=== PATIENT | male | born 1970 | race Caucasian/White ===

== ENCOUNTER 2016-09-05 18:43 | Emergency (ER) | payer SELFPAY ==
[~2016-09-05] VITALS: Ht 177.8 cm; Wt 118.5 kg
[~2016-09-05 18:43] MED LIST: BACTDS PO; CEPH-443 PO; IBUP-1542 PO
[2016-09-05 18:59] VITALS: Ht 177.8 cm; Wt 118.5 kg
[2016-09-05] MEDS ORDERED: LIDOCAINE 1% (MDV) 20 ML INJ SC ONE (20:30)
[2016-09-05] MEDS ORDERED: IBUP800T25 PO (21:30)
[2016-09-05] MEDS ORDERED: BACTDS PO (21:30)
[2016-09-05] MEDS ORDERED: CEPH-443 PO (21:30)
[2016-09-05 21:44] VITALS: PULSE 78; RESP 20; TEMP 98.4
--- NOTE | 2016-09-05 22:09 | ERD ---
ER Documentation Chief Complaint Date/Time DATE: 09/05/16 TIME: 22:03 Chief Complaint abscess back area HPI 46-year-old male with a past medical history of pilonidal cysts presents the ED complaining of a recurrent pilonidal abscess presents to the ED complaining of the same pilonidal cyst that keeps getting infected. States that this recurrence occurred 1.5 weeks ago. Describes the pain as throbbing and rates it a 9 out of 10. States that the pain is worse when he sits and stands.. States that he has not followed up with a general surgeon. Denies any abdominal pain, saddle anesthesia, chest pain, shortness of breath, weakness, melena, hematemesis, fever, chills. ROS All systems reviewed and are negative except as per history of present illness. Medications Home Meds Active Scripts Ibuprofen* (Motrin*) 800 Mg Tab, 800 MG PO Q6, #30 TAB take with food Prov:SMITH MILES. PA-C 09/05/16 Cephalexin* (Keflex*) 500 Mg Capsule, 500 MG PO QID for 7 Days, CAP Prov:SMITH MILES. PA-C 09/05/16 Sulfamethoxazole-Trimethoprim* (Bactrim* DS) 800-160 Mg Tab, 1 TAB PO BID for 7 Days, TAB Prov:SMITH MILES. PA-C 09/05/16 Ibuprofen* (Motrin*) 600 Mg Tab, 600 MG PO Q6, #30 TAB Prov:SMITH MILES. PA-C 01/07/16 Cephalexin* (Keflex*) 500 Mg Capsule, 500 MG PO QID for 7 Days, CAP Prov:SMITH MILES. PA-C 01/07/16 Sulfamethoxazole-Trimethoprim* (Bactrim* DS) 800-160 Mg Tab, 1 TAB PO BID for 7 Days, TAB Prov:SMITH MILES T. PA-C 01/07/16 Allergies Allergies: Coded Allergies: No Known Allergy (Unverified , 09/05/16) PMhx/Soc History of Surgery: No Anesthesia Reaction: No Hx Neurological Disorder: No Hx Respiratory Disorders: No Hx Cardiac Disorders: No Hx Psychiatric Problems: No Hx Miscellaneous Medical Probl: No Hx Alcohol Use: Yes Hx Substance Use: No Hx Tobacco Use: Yes Smoking Status: Unknown if ever smoked Physical Exam Vitals Vital Signs Date Time Temp Pulse Resp B/P Pulse Ox O2 Delivery O2 Flow Rate FiO2 09/05/16 21:44 98.4 78 20 99 Room Air 09/05/16 18:59 99.8 107 20 131/79 100 Physical Exam Const: [id number], well-nourished. In no acute distress. Head: Atraumatic, normocephalic Eyes: Normal Conjunctiva without injection. No purulent discharge. ENT: Normal external ear, nose. Moist oropharynx without tonsillar exudates. Non -erythematous pharynx. Uvula midline. No drooling. No trismus. Neck: No cervical midline tenderness. Full range of motion. No meningismus. No cervical lymphadenopathy. No JVD. Resp: Clear to auscultation bilaterally. No wheezing, rhonchi, rales, or crackles. No accessory muscle use. No retractions. Cardio: Regular rate and rhythm. No murmurs, rubs or gallops. Abd: Soft, nontender, non distended. Normal bowel sounds. No palpable masses. No rebound tenderness. No guarding. Negative McBurney's point. Negative psoas sign. Negative obturator sign. 6 cm erythematous indurated abscess with central fluctuance noted on the right upper needle cleft. No hemorrhoids, tenderness to palpation of the rectum. No lymphatic streaking. Skin: No petechiae or rashes Back: No midline tenderness. No CVA tenderness. Ext: No cyanosis, or edema. Neur: Awake and alert. Normal gait. Normal coordination. Psych: Normal Mood and Affect Results 24 hrs Current Medications Medications (Trade) Dose Ordered Sig/Katiana Route PRN Reason Start Time Stop Time Status Last Admin Dose Admin Lidocaine (Xylocaine 1% (Mdv) 20 ml) 20 ml ONCE ONCE SC 09/05/16 20:30 09/05/16 20:32 DC Procedures/MDM 46-year-old male with a past medical history pilonidal cyst presents the ED complaining of a recurrent pilonidal cyst that is infected that started 1 and half weeks ago. Patient is afebrile and nontoxic-appearing. Patient has normal vital signs. Patient denied wanting any pain medication at this time. Patient gave consent to perform incision and drainage. 11 blade scalpel used to make a small incision. Abscess Incision and Drainage with irrigation by me: Location: Right gluteal cleft Anesthesia: [8 cc Local 1% Lidocaine] Technique: [Irrigated. Disrupted loculations w/ instrumentation ] Packing: [20 cm] Complications: [Neurovascularly intact post procedure] Copious purulent discharge drained from the abscess. 48 hour wound check recommended. Scar minimization instructions given. Low suspicion for hemorrhoids, anal fistula, perirectal abscess, folliculitis, acute abdomen, cauda equina, epidural abscess, fracture, dislocation, discitis, or other emergent conditions. Keflex and Bactrim was prescribed to patient. Instructed patient to return to the ED sooner for any worsening symptoms. Follow up with primary care physician or return to the ED in 2 days for a wound check. Patient's questions were answered. Patient understood and agreed with discharge plan. Departure Diagnosis: Primary Impression: Pilonidal cyst with abscess Condition: Stable Patient Instructions: Pilonidal Cyst, Infected (Incision And Drainage) Referrals: [facility] YOU HAVE RECEIVED A MEDICAL SCREENING EXAM AND THE RESULTS INDICATE THAT YOU DO NOT HAVE A CONDITION THAT REQUIRES URGENT TREATMENT IN THE EMERGENCY DEPARTMENT. FURTHER EVALUATION AND TREATMENT OF YOUR CONDITION CAN WAIT UNTIL YOU ARE SEEN IN YOUR DOCTORS OFFICE WITHIN THE NEXT 1-2 DAYS. IT IS YOUR RESPONSIBILITY TO MAKE AN APPOINTMENT FOR FOLOW-UP CARE. IF YOU HAVE A PRIMARY DOCTOR --you should call your primary doctor and schedule an appointment IF YOU DO NOT HAVE A PRIMARY DOCTOR YOU CAN CALL OUR PHYSICIAN REFERRAL HOTLINE AT IF YOU CAN NOT AFFORD TO SEE A PHYSICIAN YOU CAN CHOSE FROM THE FOLLOWING [facility] [address] [facility] [address] [facility]. [facility] [address] [facility] [address] [facility] [address] [facility]. [facility]. [address] [facility]. [facility] YOU HAVE RECEIVED A MEDICAL SCREENING EXAM AND THE RESULTS INDICATE THAT YOU DO NOT HAVE A CONDITION THAT REQUIRES URGENT TREATMENT IN THE EMERGENCY DEPARTMENT. FURTHER EVALUATION AND TREATMENT OF YOUR CONDITION CAN WAIT UNTIL YOU ARE SEEN IN YOUR DOCTORS OFFICE WITHIN THE NEXT 1-2 DAYS. IT IS YOUR RESPONSIBILITY TO MAKE AN APPOINTMENT FOR FOLOW-UP CARE. IF YOU HAVE A PRIMARY DOCTOR --you should call your primary doctor and schedule and appointment IF YOU DO NOT HAVE A PRIMARY DOCTOR YOU CAN CALL OUR PHYSICIAN REFERRAL HOTLINE AT . IF YOU CAN NOT AFFORD TO SEE A PHYSICIAN YOU CAN CHOSE FROM THE FOLLOWING [facility] INSTITUTIONS: [facility] [address] [place] [address] [facility] [address] [place] [address] [facility] [address] [place] [address] [facility] URGENT CARE/SPECIALTIES Additional Instructions: Return to the ED or see your family doctor in 2 days for a wound check and packing removal. Return to this facility if you are not improving as expected. SMITH MILES PA-C Sep 05, 2016 22:09
== END 2016-09-05 21:35 | disposition home or self-care (01) ==
LOC: FTE 18:43
DX: L05.01 Pilonidal cyst with abscess (principal); Z87.891 Personal history of nicotine dependence

== ENCOUNTER 2016-10-08 22:52 | Emergency (ER) | payer SELFPAY ==
[~2016-10-08] VITALS: Ht 177.8 cm; Wt 113.9 kg
[~2016-10-08 22:52] MED LIST changes: +IBUP800T25 PO
[2016-10-08 22:54] VITALS: Ht 177.8 cm; Wt 113.9 kg
[2016-10-09] MEDS ORDERED: LIDOCAINE 1% (MDV) 20 ML INJ SC ONE
[2016-10-09] MEDS ORDERED: HYDR-906 PO (02:23)
[2016-10-09] MEDS ORDERED: IBUP-1542 PO (02:23)
[2016-10-09] MEDS ORDERED: BACTDS PO (02:24)
[2016-10-09] MEDS ORDERED: CEPH-443 PO (02:24)
--- NOTE | 2016-10-09 02:30 | ERD ---
ER Documentation Chief Complaint Date/Time DATE: 10/09/16 TIME: 02:25 Chief Complaint abscess at lower back HPI This is a 46-year-old male with a past medical history of recurrent pilonidal abscesses presents to the ED complaining of a bump on the right side of his lower back. States that he thinks that it is due to a recurrent pilonidal abscess. States that he has not followed with his family physician for a referral to a general surgeon. Denies any abdominal pain, nausea, vomiting, abdominal pain, nausea, vomiting, diarrhea, melena, bloody stools, fever. Denies any dysuria, urgency, frequency, girdle pain. ROS All systems reviewed and are negative except as per history of present illness. Medications Home Meds Active Scripts Cephalexin* (Keflex*) 500 Mg Capsule, 500 MG PO QID for 7 Days, CAP Prov:MILESSMITH Ivey PA-C 10/09/16 Sulfamethoxazole-Trimethoprim* (Bactrim* DS) 800-160 Mg Tab, 1 TAB PO BID for 7 Days, TAB Prov:MILESSMITH Hui. PA-C 10/09/16 Ibuprofen* (Motrin*) 600 Mg Tab, 600 MG PO Q6, #30 TAB Prov:JDSMITH Ivey PA-C 10/09/16 Hydrocodone/Acetaminophen (Damon 5-325 Tablet) 1 Each Tablet, 1 TAB PO Q6H Y for PAIN, #7 TAB Prov:SMITH MILES Loni PA-C 10/09/16 Ibuprofen* (Motrin*) 800 Mg Tab, 800 MG PO Q6, #30 TAB take with food Prov:LUPIS MILESANA MARIA Ivey PA-C 09/05/16 Cephalexin* (Keflex*) 500 Mg Capsule, 500 MG PO QID for 7 Days, CAP Prov:JDSMITH Ivey PA-C 09/05/16 Sulfamethoxazole-Trimethoprim* (Bactrim* DS) 800-160 Mg Tab, 1 TAB PO BID for 7 Days, TAB Prov:JDSMITH Hui. PA-C 09/05/16 Ibuprofen* (Motrin*) 600 Mg Tab, 600 MG PO Q6, #30 TAB Prov:SMITH MILES PA-C 01/07/16 Cephalexin* (Keflex*) 500 Mg Capsule, 500 MG PO QID for 7 Days, CAP Prov:SMITH MILES Loni GUTIERREZ 01/07/16 Sulfamethoxazole-Trimethoprim* (Bactrim* DS) 800-160 Mg Tab, 1 TAB PO BID for 7 Days, TAB Prov:SMITH MILESRohan GUTIERREZ 01/07/16 Allergies Allergies: Coded Allergies: No Known Allergy (Unverified , 09/05/16) PMhx/Soc Medical and Surgical Hx: pt denies Surgical Hx History of Surgery: Yes (ABSCESS DRAINAGE MULT TIMES; LAST 2 WEEKS AGO) Anesthesia Reaction: No Hx Neurological Disorder: No Hx Respiratory Disorders: No Hx Cardiac Disorders: No Hx Psychiatric Problems: No Hx Miscellaneous Medical Probl: No Hx Alcohol Use: Yes (2-3 BEERS/ DAY) Hx Substance Use: No Hx Tobacco Use: Yes (10 CIGS/ DAY) Smoking Status: Current every day smoker Physical Exam Vitals Vital Signs Date Time Temp Pulse Resp B/P Pulse Ox O2 Delivery O2 Flow Rate FiO2 10/08/16 22:54 97.5 88 20 121/81 100 Physical Exam Const: [id number], well-nourished. In no acute distress. Head: Atraumatic, normocephalic Eyes: Normal Conjunctiva without injection. No purulent discharge. ENT: Normal external ear, nose. Moist oropharynx without tonsillar exudates. Non -erythematous pharynx. Uvula midline. No drooling. No trismus. Neck: No cervical midline tenderness. Full range of motion. No meningismus. No cervical lymphadenopathy. No JVD. Resp: Clear to auscultation bilaterally. No wheezing, rhonchi, rales, or crackles. No accessory muscle use. No retractions. Cardio: Regular rate and rhythm. No murmurs, rubs or gallops. Abd: Soft, nontender, non distended. Normal bowel sounds. No palpable masses. No rebound tenderness. No guarding. Negative McBurney's point. Negative psoas sign. Negative obturator sign. 5 cm fluctuant abscess noted on the right side of the gluteal cleft with surrounding induration with 1 cm previous incision scars from previous incision and drainages. No bleeding noted. No purulent discharge noted. Skin: No petechiae or rashes Back: No midline tenderness. No CVA tenderness. Ext: No cyanosis, or edema. Neur: Awake and alert. Normal gait. Normal coordination. Psych: Normal Mood and Affect Results 24 hrs Current Medications Medications (Trade) Dose Ordered Sig/Katiana Route PRN Reason Start Time Stop Time Status Last Admin Dose Admin Lidocaine (Xylocaine 1% (Mdv) 20 ml) 20 ml ONCE ONCE SC 10/09/16 00:00 10/09/16 00:01 DC Procedures/MDM This is a 46-year-old male with a past medical history of pilonidal abscesses presents the ED complaining of a recurrent pilonidal abscess. Patient is afebrile and nontoxic-appearing. Patient has normal vital signs. Patient gave consent to perform incision and drainage. 11 blade scalpel used to make a small incision. Abscess Incision and Drainage with irrigation by me: Location: [Right side of gluteal cleft] Anesthesia: [4 cc Local 1% Lidocaine] Technique: [Irrigated. Disrupted loculations w/ instrumentation ] Packing: [30 cm] Complications: [Neurovascularly intact post procedure] Copious purulent discharge drained from the abscess. 48 hour wound check recommended. Scar minimization instructions given. Low suspicion for anal fissure, anal fistula, perirectal abscess, hemorrhoids, GI bleeding, acute abdomen, appendicitis, sepsis, or other emergent conditions. Keflex and Bactrim was prescribed to patient. Instructed patient to return to the ED sooner for any worsening symptoms. Follow up with primary care physician or return to the ED in 2 days for a wound check. Patient was instructed strictly to follow-up with her primary care physician for a referral to general surgeon. Patient's questions were answered. Patient understood and agreed with discharge plan. Departure Diagnosis: Primary Impression: Pilonidal cyst with abscess Condition: Stable Patient Instructions: Pilonidal Cyst, Infected (Incision And Drainage) Referrals: [facility] YOU HAVE RECEIVED A MEDICAL SCREENING EXAM AND THE RESULTS INDICATE THAT YOU DO NOT HAVE A CONDITION THAT REQUIRES URGENT TREATMENT IN THE EMERGENCY DEPARTMENT. FURTHER EVALUATION AND TREATMENT OF YOUR CONDITION CAN WAIT UNTIL YOU ARE SEEN IN YOUR DOCTORS OFFICE WITHIN THE NEXT 1-2 DAYS. IT IS YOUR RESPONSIBILITY TO MAKE AN APPOINTMENT FOR FOLOW-UP CARE. IF YOU HAVE A PRIMARY DOCTOR --you should call your primary doctor and schedule an appointment IF YOU DO NOT HAVE A PRIMARY DOCTOR YOU CAN CALL OUR PHYSICIAN REFERRAL HOTLINE AT IF YOU CAN NOT AFFORD TO SEE A PHYSICIAN YOU CAN CHOSE FROM THE FOLLOWING [facility] CL[facility]ICS [facility] [address] [facility] [address] [facility] [address] [facility] [address] [facility] [address] [facility]. [facility]. [address] [facility]. [facility] YOU HAVE RECEIVED A MEDICAL SCREENING EXAM AND THE RESULTS INDICATE THAT YOU DO NOT HAVE A CONDITION THAT REQUIRES URGENT TREATMENT IN THE EMERGENCY DEPARTMENT. FURTHER EVALUATION AND TREATMENT OF YOUR CONDITION CAN WAIT UNTIL YOU ARE SEEN IN YOUR DOCTORS OFFICE WITHIN THE NEXT 1-2 DAYS. IT IS YOUR RESPONSIBILITY TO MAKE AN APPOINTMENT FOR FOLOW-UP CARE. IF YOU HAVE A PRIMARY DOCTOR --you should call your primary doctor and schedule and appointment IF YOU DO NOT HAVE A PRIMARY DOCTOR YOU CAN CALL OUR PHYSICIAN REFERRAL HOTLINE AT . IF YOU CAN NOT AFFORD TO SEE A PHYSICIAN YOU CAN CHOSE FROM THE FO[facility] IN[facility]IONS: [facility] [address] [place] [address] [facility] [address] [place] [address] [facility] [address] [place] [address] [facility] URGENT CARE/SPECIALTIES Additional Instructions: FOLLOW UP WITH YOUR PRIMARY CARE PHYSICIAN or HERE IN THE ED for a WOUND CHECK IN 2 DAYS. Follow-up with your primary care physician for a referral to general surgeon. Return to this facility if you are not improving as expected such as increased redness, fever, chills, swelling. SMITH MILES PA-C Oct 09, 2016 02:30
== END 2016-10-09 03:24 | disposition left against medical advice (07) ==
LOC: FTE 22:52
DX: L05.01 Pilonidal cyst with abscess (principal); F17.210 Nicotine dependence, cigarettes, uncomplicated